=== PATIENT | female | born 1965 | race Caucasian/White ===

== ENCOUNTER 2017-04-09 17:05 | Emergency (ER) | payer BC ==
[2017-04-09] MEDS ORDERED: Ketorolac 30 MG/ML SDV IVPUSH ONE (17:11)
[2017-04-09] MEDS ORDERED: Sodium Chloride 0.9% 1,000 ML IV ONE (17:11)
[2017-04-09] MEDS ORDERED: fentaNYL 100 MCG/2 ML SDV IVPUSH ONE (17:28)
[2017-04-09] MEDS ORDERED: Ondansetron 4 MG/2 ML SDV IVPUSH ONE ×2 (17:28→19:12)
--- NOTE | 2017-04-09 17:30 | EDM.PDOC ---
ED HPI GENERAL MEDICAL PROBLEM - General Chief Complaint: General Stated Complaint: PT HURT RT KNEE Time Seen by Provider: 04/09/17 17:09 Source of Information: Reports: Patient History Limitations: Reports: No Limitations - History of Present Illness INITIAL COMMENTS - FREE TEXT/NARRATIVE: History of present illness: [51-year-old female presenting with acute pain in her right knee. Patient indicates that she has had A. history of surgical intervention on this rainy at the age of 17 but cannot recall exactly what the surgery was. Patient became she had been having aching and pain in that knee throughout the day and that she had gone to place an item on her vanity heard it pop and the knee gave out. Now patient indicates that she is having at 10 out of 10 pain when she is lying at rest without any weight on that leg.] Review of systems: As per history of present illness and below otherwise all systems reviewed and negative. Past medical history: As per history of present illness and as reviewed below otherwise noncontributory. Surgical history: As per history of present illness and as reviewed below otherwise noncontributory. Social history: No reported history of drug or alcohol abuse. Family history: As per history of present illness and as reviewed below otherwise noncontributory. Physical exam: HEENT: Atraumatic, normocephalic, pupils reactive, negative for conjunctival pallor or scleral icterus, mucous membranes moist, throat clear, neck supple, nontender, trachea midline. Lungs: Clear to auscultation, breath sounds equal bilaterally, chest nontender. Heart: S1S2, regular, negative for clicks, rubs, or JVD. Abdomen: Soft, nondistended, nontender. Negative for masses or hepatosplenomegaly. Negative for costovertebral tenderness. Pelvis: Stable nontender. Genitourinary: Deferred. Rectal: Deferred. Extremities: Atraumatic, negative for cords or calf pain. Neurovascular unremarkable. Neuro: Awake, alert, oriented. Cranial nerves II through XII unremarkable. Cerebellum unremarkable. Motor and sensory unremarkable throughout. Exam nonfocal. Diagnostics: [X-ray right knee] Therapeutics: [IV fluids, Toradol] Impression: [knee pain] Plan: [immobilizer, crutches, f/u with ortho] Definitive disposition and diagnosis as appropriate pending reevaluation and review of above. Right Knee Pain Score (Numeric/FACES): 0 - Related Data Allergies Allergy/AdvReac Type Severity Reaction Status Date / Time No Known Allergies Allergy Verified 09/04/16 14:26 Home Meds: Home Meds . 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 - Past Surgical History Musculoskeletal Surgical History: Reports: Arthroscopic Knee Social & Family History - Family History Family Medical History: Noncontributory - Tobacco Use Smoking Status *Q: Never Smoker Second Hand Smoke Exposure: Yes - Caffeine Use Caffeine Use: Reports: None - Recreational Drug Use Recreational Drug Use: No ED ROS GENERAL - Review of Systems Review Of Systems: See Below (History of present illness) ED EXAM, GENERAL - Physical Exam Exam: See Below (See history of present illness) Course - Vital Signs Last Recorded V/S: Last Vital Signs Temp 36.9 C 04/09/17 20:21 Pulse 69 04/09/17 20:21 Resp 14 04/09/17 20:21 BP 116/61 04/09/17 20:21 Pulse Ox 96 04/09/17 20:21 - Orders/Labs/Meds Orders: Active Orders 24 hr Category Date Time Status Knee 1V or 2V Rt [CR] Stat Exams 04/09/17 17:11 Taken Knee wo Cont Rt [CT] Stat Exams 04/09/17 18:15 Taken Meds: Medications Discontinued Medications Generic Name Dose Route Start Last Admin Trade Name Freq PRN Reason Stop Dose Admin Fentanyl 50 mcg 04/09/17 17:28 04/09/17 17:41 Sublimaze IVPUSH 04/09/17 17:29 50 mcg ONETIME ONE Administration Hydromorphone HCl 4 mg 04/09/17 19:11 04/09/17 19:21 Dilaudid IVPUSH 04/09/17 19:12 4 mg ONETIME ONE Administration Sodium Chloride 1,000 mls @ 999 mls/hr 04/09/17 17:11 04/09/17 17:22 Normal Saline IV 04/09/17 18:11 999 mls/hr STAT ONE Administration Ketorolac Tromethamine 30 mg 04/09/17 17:11 04/09/17 17:22 Toradol IVPUSH 04/09/17 17:12 30 mg ONETIME ONE Administration Ondansetron HCl 4 mg 04/09/17 17:28 04/09/17 17:41 Zofran IVPUSH 04/09/17 17:29 4 mg ONETIME ONE Administration Ondansetron HCl 4 mg 04/09/17 19:12 04/09/17 19:19 Zofran IVPUSH 04/09/17 19:13 4 mg ONETIME ONE Administration Departure - Departure Time of Disposition: 20:30 Disposition: Home, Self-Care 01 Condition: good Clinical Impression: Knee pain, right - Discharge Information Instructions: Knee Pain, [id number] Referrals: PCP,None [Primary Care Provider] - Forms: ED Department Discharge Additional Instructions: The following information is given to patients seen in the emergency department who are being discharged to home. This information is to outline your options for follow-up care. We provide all patients seen in our emergency department with a follow-up referral. The need for follow-up, as well as the timing and circumstances, are variable depending upon the specifics of your emergency department visit. If you don't have a primary care physician on staff, we will provide you with a referral. We always advise you to contact your personal physician following an emergency department visit to inform them of the circumstance of the visit and for follow-up with them and/or the need for any referrals to a consulting specialist. The emergency department will also refer you to a specialist when appropriate. This referral assures that you have the opportunity for follow-up care with a specialist. All of these measure are taken in an effort to provide you with optimal care, which includes your follow-up. Under all circumstances we always encourage you to contact your private physician who remains a resource for coordinating your care. When calling for follow-up care, please make the office aware that this follow-up is from your recent emergency room visit. If for any reason you are refused follow-up, please contact the [facility] Emergency Department at and asked to speak to the emergency department charge nurse. Keep immobilizer on at all times except for today's Use crutches at all times to facilitate nonweightbearing Followup with PCP in one to 2 days Return to ED as needed as discussed - My Orders Last 24 Hours: My Active Orders 04/09/17 17:11 Knee 1V or 2V Rt [CR] Stat 04/09/17 18:15 Knee wo Cont Rt [CT] Stat - Assessment/Plan Last 24 Hours: My Active Orders 04/09/17 17:11 Knee 1V or 2V Rt [CR] Stat 04/09/17 18:15 Knee wo Cont Rt [CT] Stat
[2017-04-09] MEDS ORDERED: HYDROmorphone 2 MG/ML Syringe IVPUSH ONE (19:11)
[2017-04-09 20:23] VITALS: BP 116/61
--- NOTE | 2017-04-10 11:48 | CR ---
EXAM DATE: 04/09/17 PATIENT'S AGE: 51 Patient: FLETCHER ARMENDARIZ Facility: [place], [place] Site . Site : 1965 Study: XRay Knee [id number]/22/2017 5:36:26 PM Ordering Physician: Doctor Wood Final Report: INDICATION: pain HISTORY: Knee pain. COMPARISON: None. TECHNIQUE: Right knee, 2 views. FINDINGS: Advanced joint space loss at the patellofemoral joint. There is osteophytic spurring in the medial lateral compartments. There is a lucency present about the right medial tibial plateau, without a depressed fracture. This should be correlated for any history of recent injury. If there is a recent history of trauma, CT may be obtained to exclude an acute fracture. There is diffuse bone demineralization. No radiopaque foreign body. IMPRESSION: 1. Indeterminate lucency present about the right medial tibial plateau. 2. No cortical step-off or depressed fracture. If there is recent trauma, consider CT scan to exclude an acute fracture. Dictated by Jr Esaclante MD @ 04/09/2017 6:07:51 PM Dictated by: Jr Escalante MD @ 04/09/2017 18:08:00 (Electronic Signature) Report Signed by Proxy. ADIN
--- NOTE | 2017-04-10 11:49 | CT ---
EXAM DATE: 04/09/17 PATIENT'S AGE: 51 Patient: FLETCHER ARMENDARIZ Facility: [place], [place] Site . Site : 1965 Study: CT Knee Right [id number]/22/2017 6:59:38 PM Ordering Physician: Doctor Wood Final Report: HISTORY: Knee pain. Technique: CT right knee without contrast. Comparison: Radiographs 04/09/2017. Findings: No fracture. Severe patellofemoral compartment joint space narrowing with bony remodeling, subchondral sclerosis, subchondral cysts, and marginal osteophytes. Medial and lateral compartment marginal osteophytes. Chondrocalcinosis. Prominent cysts in the medial tibial plateau related to degenerative arthritis. No suspicious bone lesions. Physiologic quantity of joint fluid. Small popliteal cyst. Muscle bulk is maintained. Impression: 1. No fracture. 2. 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 3. Prominent degenerative cysts in the medial tibial plateau. No suspicious bone lesions. 4. Small popliteal cyst. Please note that all CT scans at this facility use dose modulation, iterative reconstruction, and/or weight-based dosing when appropriate to reduce radiation dose to as low as reasonably achievable. Dictated by Bill Morley MD @ Apr 10 2017 7:41AM (Electronic Signature) Report Signed by Proxy. [facility]ED[facility] PSYCHIATRIC CENTERHenny
== END 2017-04-09 20:40 | disposition home or self-care (01) ==
LOC: MW.ED 17:05
DX: M25.561 Pain in right knee (principal); M10.9 Gout, unspecified; Z90.710 Acquired absence of both cervix and uterus
CPT/HCPCS: 73560; 73700; 96361; 96374; 96375; 96376; 99284; J1170; J1885; J2405; J3010; J7040

== ENCOUNTER 2021-03-16 11:20 | Emergency (ER) | payer OTHER ==
--- NOTE | 2021-03-16 11:49 | EDM.PDOC ---
ED HPI GENERAL MEDICAL PROBLEM - General Chief Complaint: Upper Extremity Injury/Pain Stated Complaint: LFT ARM Time Seen by Provider: 03/16/21 11:31 Source of Information: Reports: Patient History Limitations: Reports: No Limitations - History of Present Illness INITIAL COMMENTS - FREE TEXT/NARRATIVE: Patient is a 55-year-old female who presents today for left arm pain. Patient was at work when she tripped and landed against a wall part in her right arm. Patient has pain to the upper arm and shoulder. Patient has pain with movement. Patient she took some Aleve this had the pain subsided slightly. Patient is able to range her elbow does not pain in her hand. Patient has no numbness tingling. Patient has good sensation to the arm. Patient denies any head have any LOC other complaints. Left Arm Pain Score (Numeric/FACES): 9 - Related Data Allergies Allergy/AdvReac Type Severity Reaction Status Date / Time No Known Allergies Allergy Verified 09/04/16 14:26 Home Meds: Home Meds Acetaminophen 500 mg PO Q4H PRN 03/16/21 [History] Albuterol [Proventil Neb Soln] 0.63 mg INH QID PRN 03/16/21 [History] Escitalopram [Lexapro] 10 mg PO DAILY 03/16/21 [History] Fluticasone Furoate [Arnuity Ellipta] 50 mcg INH BID PRN 03/16/21 [History] Ibuprofen 200 mg PO Q4H PRN 03/16/21 [History] Indomethacin 50 mg PO DAILY 03/16/21 [History] traZODone 50 mg PO DAILY 03/16/21 [History] Past Medical History HEENT History: Reports: None Cardiovascular History: Reports: Other (See Below) Other Cardiovascular History: hyperthropiccardiomyopathy Genitourinary History: Reports: None DIRECTOR EMPLOYMENT History: Reports: Other (See Below) Other DIRECTOR EMPLOYMENT History: hysterectomy, no ovaries Musculoskeletal History: Reports: Gout Endocrine/Metabolic History: Reports: Diabetes, Type II Oncologic (Cancer) History: Reports: Other (See Below) 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 - Infectious Disease History Infectious Disease History: Reports: None - Past Surgical History HEENT Surgical History: Reports: Tonsillectomy Other HEENT Surgeries/Procedures: Ear surgery Cardiovascular Surgical History: Reports: None GI Surgical History: Reports: Appendectomy Female Surgical History: Reports: Hysterectomy Endocrine Surgical History: Reports: Parathyroidectomy Musculoskeletal Surgical History: Reports: Arthroscopic Knee Oncologic Surgical History: Reports: None Social & Family History - Family History Family Medical History: No Pertinent Family History - Tobacco Use Tobacco Use Status *Q: Never Tobacco User - Caffeine Use Caffeine Use: Reports: None - Recreational Drug Use Recreational Drug Use: No Review of Systems - Review of Systems Review Of Systems: See Below Constitutional: Reports: No Symptoms Eyes: Reports: No Symptoms Ears: Reports: No Symptoms Nose: Reports: No Symptoms Mouth/Throat: Reports: No Symptoms Respiratory: Reports: No Symptoms Cardiovascular: Reports: No Symptoms GI/Abdominal: Reports: No Symptoms Genitourinary: Reports: No Symptoms Musculoskeletal: Reports: Arm Pain Skin: Reports: No Symptoms Neurological: Reports: No Symptoms Psychiatric: Reports: No Symptoms ED EXAM, GENERAL - Physical Exam Exam: See Below Exam Limited By: No Limitations General Appearance: Alert, WD/WN, No Apparent Distress Respiratory/Chest: No Respiratory Distress, Lungs Clear Cardiovascular: Normal Peripheral Pulses, Regular Rate, Rhythm Peripheral Pulses: 2+: Radial (L) GI/Abdominal: Normal Bowel Sounds, Soft, Non-Tender Extremities: Normal Inspection, Normal Range of Motion (of elbow and wrist decrease at shoulder due to pain). No: Non-Tender (to humerus) Neurological: Alert, Oriented, Normal Cognition, Normal Gait Course - Vital Signs Last Recorded V/S: Last Vital Signs Temp 97.3 F 03/16/21 11:38 Pulse 91 03/16/21 11:38 Resp 17 03/16/21 11:38 BP 155/93 H 03/16/21 11:38 Pulse Ox 97 03/16/21 11:38 - Re-Assessments/Exams Free Text/Narrative Re-Assessment/Exam: 03/16/21 14:20 Patient x-ray does not show any acute fractures or injuries. Patient made aware. Patient instructed to take Tylenol Motrin arrange arm as needed. Patient also told pain does not improve the next 5 to 7 days please follow-up. Departure - Departure Time of Disposition: 14:21 Disposition: Home, Self-Care 01 Condition: Good Clinical Impression: Arm injury - Discharge Information *PRESCRIPTION DRUG MONITORING PROGRAM REVIEWED*: Not Applicable *COPY OF PRESCRIPTION DRUG MONITORING REPORT IN PATIENT JM: Not Applicable Instructions: Shoulder Pain, [id number] Referrals: Cat Briceño NP [Primary Care Provider] - Forms: ED Department Discharge Additional Instructions: The following information is given to patients seen in the emergency department who are being discharged to home. This information is to outline your options for follow-up care. We provide all patients seen in our emergency department with a follow-up referral. The need for follow-up, as well as the timing and circumstances, are variable depending upon the specifics of your emergency department visit. If you don't have a primary care physician on staff, we will provide you with a referral. We always advise you to contact your personal physician following an emergency department visit to inform them of the circumstance of the visit and for follow-up with them and/or the need for any referrals to a consulting specialist. The emergency department will also refer you to a specialist when appropriate. This referral assures that you have the opportunity for follow-up care with a specialist. All of these measure are taken in an effort to provide you with optimal care, which includes your follow-up. Under all circumstances we always encourage you to contact your private physician who remains a resource for coordinating your care. When calling for follow-up care, please make the office aware that this follow-up is from your recent emergency room visit. If for any reason you are refused follow-up, please contact the [facility] Emergency Department at and asked to speak to the emergency department charge nurse. Please follow up with your primary care physician. If you do not have a primary care physician, see below: [facility] [address] [place] [id number] [facility] [address] [place] [id number] Your x-rays do not show any fractures. You may have is bruised the arm from the fall. Continue to take Tylenol Motrin as needed for the pain. If you develop any increased pain swelling numbness or tingling please return to the ED or follow-up with your primary care physician. Sepsis Event Note (ED) - Evaluation Sepsis Screening Result: No Definite Risk - Focused Exam Vital Signs: Vital Signs Temp Pulse Resp BP Pulse Ox 03/16/21 11:38 97.3 F 91 17 155/93 H 97 - Assessment/Plan Plan: Patient is a 55-year-old female who presents today for left arm pain after falling on it while at work. Will obtain x-rays and reassess.
--- NOTE | 2021-03-16 13:30 | CR ---
INDICATION: fall TECHNIQUE: Left views. COMPARISON: None. FINDINGS: Bones: Alignment is normal. No fractures or bone lesions. Joint spaces: Unremarkable. Soft tissues: Unremarkable. IMPRESSION: Unremarkable left shoulder. Dictated by: Efraín Simon MD @ 03/16/2021 13:28:12 (Electronically Signed)
--- NOTE | 2021-03-16 13:34 | CR ---
INDICATION: Trauma TECHNIQUE: Views of humerus COMPARISON: None FINDINGS: Bones: Alignment is normal. No fractures or bone lesions. Joint spaces: Unremarkable. Soft tissues: Unremarkable. IMPRESSION: Negative. Dictated by Efraín Simon MD @ 03/16/2021 1:32:25 PM Dictated by: Efraín Simon MD @ 03/16/2021 13:32:31 (Electronically Signed)
--- NOTE | 2021-03-16 13:40 | CR ---
INDICATION: fall TECHNIQUE: Left elbow 3 views. COMPARISON: None. FINDINGS: Bones: Alignment is normal. No fractures or bone lesions. Joint spaces: Unremarkable. Soft tissues: Unremarkable. IMPRESSION: Unremarkable left elbow. Dictated by: Efraín Simon MD @ 03/16/2021 13:37:52 (Electronically Signed)
[2021-03-16 14:23] VITALS: BP 148/67; PULSE 83
== END 2021-03-16 14:45 | disposition home or self-care (01) ==
LOC: MW.ED 11:20
DX: S49.92XA Unspecified injury of left shoulder and upper arm, initial encounter (principal); E11.9 Type 2 diabetes mellitus without complications; W01.0XXA Fall on same level from slipping, tripping and stumbling without subsequent striking against object, initial encounter; Y99.0 Civilian activity done for income or pay
CPT/HCPCS: 73030-26-LT; 73030-LT; 73060-26-LT; 73060-LT; 73080-26-LT; 73080-LT; 99282; 99283